=== PATIENT | male | born 1995 | race Caucasian/White ===

== ENCOUNTER 2022-03-06 15:04 | Emergency (ER) | payer MEDICAID ==
[~2022-03-06] VITALS: Ht 175.3 cm; Wt 86.0 kg
[2022-03-06 15:59] VITALS: BP 175/124
[2022-03-06] MEDS ORDERED: KETOROLAC 30MG/ML VIAL IV STA (15:59)
[2022-03-06] MEDS ORDERED: SODIUM CHLORIDE 0.9% 1,000 ML IV ONE (16:00)
[2022-03-06 16:31] LABS: EOSINOPHILS % 1.9 % (0.0-5.0); HEMATOCRIT. 46.5 % (42.0-52.0); HEMOGLOBIN. 16.4 g/dL (14.0-18.0); LYMPHOCYTES % 19.1 % (20.0-50.0); MEAN CORPUSCULAR HEMOGLOBIN 30.8 pg (28.0-32.0); MEAN CORPUSCULAR VOLUME 87.2 fL (80.0-94.0); MEAN PLATELET VOLUME 9.4 fl (7.4-10.4); MONOCYTES % 10.3 % (2.0-8.0); NEUTROPHILS % 67.7 % (40.0-76.0); PLATELET 329 x1000/uL (130-400); RED BLOOD CELL COUNT 5.34 mill/uL (4.7-6.1)
[2022-03-06 16:39] LABS: CHLORIDE 108 mEq/L (98-107)
[2022-03-06] MEDS ORDERED: IOHEXOL-300 100 ML BOTTLE ONE (18:15)
[2022-03-06] MEDS ORDERED: IBUP-2028 MT (18:19)
== END 2022-03-06 19:43 | disposition home or self-care (01) ==
LOC: ER 15:23
DX: R10.30 Lower abdominal pain, unspecified (principal); M25.511 Pain in right shoulder; M54.2 Cervicalgia; M79.631 Pain in right forearm; R51.9 Headache, unspecified; J45.909 Unspecified asthma, uncomplicated; V43.52XA Car driver injured in collision with other type car in traffic accident, initial encounter; Y93.89 Activity, other specified; Y92.89 Other specified places as the place of occurrence of the external cause; Y99.8 Other external cause status
CPT/HCPCS: 36415; 70450; 71045; 71260; 72125; 73030; 73090; 74177; 80053; 83690; 85025; 96361; 96374; 99285; J1885; J7030; Q9967